=== PATIENT | male | born 1990 | race African-American/Black ===

== ENCOUNTER 2017-01-26 09:30 | Emergency (ER) | payer SELFPAY ==
[~2017-01-26] VITALS: Ht 188 cm; Wt 91.0 kg
[2017-01-26 09:41] VITALS: TEMP 36.9; Ht 188 cm; Wt 91.0 kg
[2017-01-26] MEDS ORDERED: BACIOIN2 TD (09:55)
[2017-01-26] MEDS ORDERED: AMOX875T PO (09:55)
[2017-01-26] MEDS ORDERED: IBUP-1451 PO (09:55)
--- NOTE | 2017-01-26 09:56 | EMERGENCY ROOM VISIT NOTE ---
History Report prepared by Dot: Sravanthi Blair Under the Supervision of: Dr. Luis Fernando Xavier D.O. 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 The patient has two small dogs of his own and is watching a friend's 5-month-old becca-barbra mix while he is away for spring. He states that the puppy tries to go into the cage with the two smaller dogs, but the cage is too small to accommodate all 3 dogs. This morning all three dogs were trying to go into this cage and one of the dogs was stuck, so the patient was trying to get them out when his friend's dog bit him on both hands. The patient has bites to the fingers of both hands. He is right-hand dominant. He describes his pain as "throbbing" and "burning" and rates it as a 5/10 in severity. 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 His tetanus is not up to date. Source of History: patient Onset: this morning Position: hand (bilateral) Symptom Intensity: 5/10 Quality: burning, other (throbbing) Timing: other (episode) Note: His tetanus is not up to date. Review of Systems See above for pertinent positives & negatives. A total of 10 systems reviewed and were otherwise negative. Family History No pertinent history stated. Social History Smoking Status: Never Smoker Smokeless Tobacco Use: No Alcohol Use: occasionally Drug Use: marijuana Marital Status: single Occupation Status: employed Current/Historical Medications Scheduled Amoxicillin & Pot Clavulanate (Augmentin 875-125 mg), 875 MG PO BID Bacitracin/Polymyxin B (Polysporin), 1 APPLN TD BID Scheduled PRN Ibuprofen Tab (Motrin), 800 MG PO Q8H PRN for Pain Allergies Coded Allergies: No Known Allergies (Unverified , 01/26/17) Physical Exam Vital Signs Date Time Temp Pulse Resp B/P Pulse Ox O2 Delivery O2 Flow Rate FiO2 01/26/17 09:41 36.9 87 18 120/76 98 Room Air Physical Exam GENERAL: Patient is well appearing and in no acute distress. HEENT: No acute trauma, normocephalic atraumatic, mucous membranes moist, no nasal congestion, no scleral icterus. NECK: No stridor, no adenopathy, no meningismus, trachea is midline. LUNGS: No dyspnea. Clear to auscultation and equal bilaterally. No wheeze, no rhonchi. HEART: Regular rate and rhythm. No murmurs, rubs, gallops appreciated. ABDOMEN: Soft, nontender, bowel sounds positive, no masses appreciated, no peritonitis. BACK: No midline tenderness, no CVA tenderness EXTREMITIES: There is an abrasion to the left 4th DIP on the dorsal surface and a hematoma on the PIP palmar surface. On the right hand there is an abrasion to the PIP dorsal surface of the 2nd digit and 3rd digit and a 1.5 cm superficial laceration through the 1st layer of epidermis on the proximal palm. NEUROLOGIC: Alert and oriented, no acute motor or sensory deficits, no focal weakness, cranial nerves grossly intact. SKIN: No rash, no jaundice, no diaphoresis. Medical Decision & Procedures Procedure I unroofed 3 small blisters on the patient's left hand. He tolerated the procedure well. ED Course 0936: The patient was evaluated in room A11B. A complete history and physical exam was performed. At this time I unroofed 3 small blisters. I discussed the results and treatment plan with the patient. I answered all pertaining questions that he had. He expressed understanding and verbalized agreement. The patient will be discharged home. 1000: Adacel 0.5 ml IM Medical Decision Patient is a 26-year-old male who is watching his neighbors dog in addition to his 3 dogs. 3 dogs are Arnold, Martinez Rell Terrier, and a pit bull mix which is a 5-month-old puppy. This was a provoked bite D Martinez Rell Terrier had gotten his leg stuck in the kennel when he was trying to remove the dog which time he got bit. He is able to observe the dog, it is also up-to-date on its vaccines. His last tetanus shot was greater than 10 years ago it will be administered today. Over the palmar surface of his left hand there were 2 small 0.5 cm blood blisters which were unroofed by myself. There does not appear to be a jenny puncture wound, he is able to flex all fingers at the PIP and DIP independently, there is definite abrasions through the epidermal surface not extending into the subcutaneous tissue or the dermis. He has washed his hands with soap and water prior to coming to the hospital and he subsequently washed his hands with soap and water while in the emergency department. They'll be local wound care applied a bacitracin covered with bandages and given a prescription for 7 days Augmentin. He'll be discharged home in improved and stable condition. Impression Primary Impression: Dog bite Additional Impressions: Abrasion hand Tetanus toxoid vaccination administered greater than 10 years ago Blister of left hand Scribe Attestation The scribe's documentation has been prepared under my direction and personally reviewed by me in its entirety. I confirm that the note above accurately reflects all work, treatment, procedures, and medical decision making performed by me. Departure Information Dispostion Home / Self-Care Prescriptions Amoxicillin & Pot Clavulanate (Augmentin 875-125 mg) 1 Tab Tab 875 MG PO BID for 7 Days, TAB Prov: Luis Fernando Xavier D.OAwilda 01/26/17 Ibuprofen Tab (MOTRIN) 800 Mg Tab 800 MG PO Q8H Y for Pain, #30 TAB Prov: Luis Fernando Xavier D.O. 01/26/17 Bacitracin/Polymyxin B (Polysporin) Oint 1 APPLN TD BID for 7 Days, #1 TUBE Prov: Luis Fernando Xavier D.O. 01/26/17 Referrals No Doctor, Assigned (PCP) Forms HOME CARE DOCUMENTATION FORM, IMPORTANT VISIT INFORMATION Patient Instructions ED Bite Dog, My [facility] enGreet Additional Instructions Return for swelling of the fingers, pus draining from the wound, redness streaking up the arm, or any other concerns. Problem Qualifiers Primary Impression: Dog bite Encounter type: initial encounter Qualified Codes: W54.0XXA - Bitten by dog , initial encounter Additional Impressions: Blister of left hand Encounter type: initial encounter Qualified Codes: S60.522A - Blister ( nonthermal) of left hand, initial encounter
[2017-01-26] MEDS ORDERED: DIPHTHERIA/TETANUS/PERTUSSIS 0.5 ML SYR/VIAL IM. ONE (10:00)
[2017-01-26 10:25] VITALS: BP 92/63; PULSE 69; O2SAT 98
== END 2017-01-26 10:26 | disposition home or self-care (01) ==
LOC: C.EDB 09:33 → C.EDA 10:26
DX: S60.522A Blister (nonthermal) of left hand, initial encounter (principal); S60.519A Abrasion of unspecified hand, initial encounter; W54.0XXA Bitten by dog, initial encounter; Z23 Encounter for immunization